=== PATIENT | male | born 1940 | race Native Hawaiian/Other Pacific Islander ===

== ENCOUNTER 2016-08-22 08:22 | Outpatient (CLI) | payer OTHER ==
[2016-08-22 08:57] LABS: PLATELET COUNT 226 K/uL (142-355)
[2016-08-22 09:29] LABS: POTASSIUM 4.1 mmol/L (3.6-5.2)
== END 2016-08-22 09:30 | disposition home or self-care (01) ==
LOC: LABW 08:22
PROVIDERS: Physician Assistant
DX: R06.09 Other forms of dyspnea (principal); I10 Essential (primary) hypertension; Z79.899 Other long term (current) drug therapy; Z51.81 Encounter for therapeutic drug level monitoring
CPT/HCPCS: 36415; 80053; 80061; 82248; 85027

== ENCOUNTER 2018-06-30 10:36 | Outpatient (CLI) | payer OTHER | END 2018-06-30 10:53 | disposition short-term general hospital (02) | LOC: AMB 10:36 | DX: R07.89 Other chest pain (principal) | CPT/HCPCS: A0425; A0427 ==

== ENCOUNTER 2018-07-02 10:08 | Outpatient (CLI) | payer OTHER | END 2018-07-02 20:31 | disposition home or self-care (01) | LOC: LABW 10:08 | PROVIDERS: Internal Medicine Cardiovascular Disease | DX: E78.5 Hyperlipidemia, unspecified (principal); E11.9 Type 2 diabetes mellitus without complications; Z79.899 Other long term (current) drug therapy | CPT/HCPCS: 36415; 80053; 80061; 82248 ==

== ENCOUNTER 2019-12-07 14:32 | Outpatient (CLI) | payer OTHER ==
[2019-12-07 15:22] LABS: PLATELET COUNT 290 K/uL (142-355)
[2019-12-07 16:06] LABS: POTASSIUM 4.1 mmol/L (3.6-5.2)
== END 2019-12-07 20:47 | disposition home or self-care (01) ==
LOC: LABW 14:32
PROVIDERS: Orthopaedic Surgery
DX: M25.512 Pain in left shoulder (principal); M19.012 Primary osteoarthritis, left shoulder; M75.42 Impingement syndrome of left shoulder; M05.40 Rheumatoid myopathy with rheumatoid arthritis of unspecified site; Z79.899 Other long term (current) drug therapy; Z13.228 Encounter for screening for other metabolic disorders; Z13.1 Encounter for screening for diabetes mellitus; I10 Essential (primary) hypertension; Z79.82 Long term (current) use of aspirin; E11.65 Type 2 diabetes mellitus with hyperglycemia; R68.89 Other general symptoms and signs
CPT/HCPCS: 36415; 80053; 85027; 85651; 86038; 86140; 86430

== ENCOUNTER 2020-02-26 10:04 | Emergency (ER) | payer OTHER ==
[~2020-02-26] VITALS: Ht 177.8 cm; Wt 97.5 kg
[2020-02-26 10:50] LABS: PLATELET COUNT 232 K/uL (142-355)
[2020-02-26 10:57] LABS: POTASSIUM 4.1 mmol/L (3.6-5.2)
[2020-02-26] MEDS ORDERED: GLIP10TA55 PO (11:32)
[2020-02-26] MEDS ORDERED: ISOSORB MONO20 MG PO (11:33)
[2020-02-26] MEDS ORDERED: FENOFIBRIC ACID45 MG PO (11:34)
[2020-02-26] MEDS ORDERED: DULOXETINE HCL30 MG PO (11:35)
[2020-02-26] MEDS ORDERED: ELIQUIS5 MG PO (11:35)
[2020-02-26] MEDS ORDERED: CARDIZEM60 M1 PO (11:36)
[2020-02-26] MEDS ORDERED: CELEBREX100 MG PO (11:36)
[2020-02-26] MEDS ORDERED: LIPITOR20 MG PO (11:37)
[2020-02-26] MEDS ORDERED: METOPROLOL25 M1 PO (11:37)
[2020-02-26 11:45] VITALS: BP 139/79; TEMP 97.6
== END 2020-02-26 11:45 | disposition home or self-care (01) ==
LOC: ED 10:04
PROVIDERS: Family Medicine
DX: I10 Essential (primary) hypertension (principal); E11.65 Type 2 diabetes mellitus with hyperglycemia; Z79.84 Long term (current) use of oral hypoglycemic drugs; I48.91 Unspecified atrial fibrillation
CPT/HCPCS: 80053; 81000; 82550; 82553; 84484; 85027; 93005; 96372; 99283; J0696

== ENCOUNTER 2020-03-13 10:38 | Outpatient (CLI) | payer OTHER ==
[~2020-03-13 10:38] MED LIST: CARDIZEM60 M1 PO; CELEBREX100 MG PO; DULOXETINE HCL30 MG PO; ELIQUIS5 MG PO; FENOFIBRIC ACID45 MG PO; GLIP10TA55 PO; ISOSORB MONO20 MG PO; LIPITOR20 MG PO; METOPROLOL25 M1 PO
== END 2020-03-13 21:55 | disposition home or self-care (01) ==
LOC: RAD 10:38
PROVIDERS: ATTEND Internal Medicine Pulmonary Disease
DX: R06.09 Other forms of dyspnea (principal); Z77.090 Contact with and (suspected) exposure to asbestos

== ENCOUNTER 2020-08-28 14:17 | Outpatient (CLI) | payer OTHER | END 2020-08-28 20:05 | disposition home or self-care (01) | LOC: RAD 14:17 | PROVIDERS: ATTEND Physician Assistant | DX: M54.5 Low back pain (principal) ==

== ENCOUNTER 2020-09-14 09:35 | Outpatient (CLI) | payer OTHER | END 2020-09-14 23:59 | disposition home or self-care (01) | LOC: MRI 09:35 | PROVIDERS: ATTEND Physician Assistant | DX: M54.89 Other dorsalgia (principal); M47.899 Other spondylosis, site unspecified; M12.88 Other specific arthropathies, not elsewhere classified, other specified site | CPT/HCPCS: 36415; 82565; 84520; A9576 ==

== ENCOUNTER 2020-09-27 01:20 | Emergency (ER) | payer OTHER ==
[~2020-09-27] VITALS: Ht 177.8 cm; Wt 111.1 kg
[2020-09-27 02:35] LABS: PLATELET COUNT 137 K/uL (142-355)
[2020-09-27 02:41] LABS: POTASSIUM 3.6 mmol/L (3.6-5.2); SODIUM 144 mmol/L (136-145)
[2020-09-27 04:05] VITALS: BP 126/88; TEMP 98.6
== END 2020-09-27 04:05 | disposition home or self-care (01) ==
LOC: ED 01:20
PROVIDERS: Family Medicine
DX: R53.83 Other fatigue (principal); I48.91 Unspecified atrial fibrillation; W18.39XA Other fall on same level, initial encounter; Y92.098 Other place in other non-institutional residence as the place of occurrence of the external cause
CPT/HCPCS: 36415; 80053; 84484; 85027; 93005; 99283

== ENCOUNTER 2020-09-28 01:01 | Emergency (ER) | payer OTHER ==
[~2020-09-28] VITALS: Ht 177.8 cm; Wt 115.7 kg
[2020-09-28 01:01] VITALS: TEMP 101.8
[2020-09-28 02:03] VITALS: BP 114/43
[2020-09-30] MEDS ORDERED: ASPI-93 PO (10:18)
[2020-09-30] MEDS ORDERED: METO50TA27 PO (13:38)
[2020-09-30] MEDS ORDERED: DICL50TA PO (13:46)
[2020-09-30] MEDS ORDERED: DUTASTERIDE0.5 MG PO (13:47)
[2020-09-30] MEDS ORDERED: MULTAQ400 MG PO (13:48)
[2020-09-30] MEDS ORDERED: METF500T PO ×2 (13:49→13:50)
== END 2020-09-28 02:40 | disposition home or self-care (01) ==
LOC: ED 01:01
DX: S73.191A Other sprain of right hip, initial encounter (principal); W18.39XA Other fall on same level, initial encounter; Y92.89 Other specified places as the place of occurrence of the external cause
CPT/HCPCS: 96372; 99283; J1885

== ENCOUNTER 2020-10-10 14:47 | Emergency (ER) | payer OTHER ==
[~2020-10-10] VITALS: Ht 177.8 cm; Wt 112.9 kg
[~2020-10-10 14:47] MED LIST changes: +ASPI-93 PO; +DICL50TA PO; +DUTASTERIDE0.5 MG PO; +METF500T PO; +METO50TA27 PO; +MULTAQ400 MG PO
[2020-10-10 15:12] LABS: PLATELET COUNT 276 K/uL (142-355)
[2020-10-10 19:41] VITALS: BP 117/77; TEMP 98.1
== END 2020-10-10 19:41 | disposition home or self-care (01) ==
LOC: ED 14:47
PROVIDERS: Family Medicine
DX: R55 Syncope and collapse (principal); R11.2 Nausea with vomiting, unspecified; M54.5 Low back pain
CPT/HCPCS: 80053; 85027; 93005; 96374; 96375; 99284; J2175; J2405

== ENCOUNTER 2021-12-02 17:44 | Emergency (ER) | payer OTHER ==
[~2021-12-02] VITALS: Ht 177.8 cm; Wt 108.9 kg
[2021-12-02 18:40] VITALS: BP 147/90; TEMP 98.1
== END 2021-12-02 18:40 | disposition home or self-care (01) ==
LOC: ED 17:44
DX: I48.20 Chronic atrial fibrillation, unspecified (principal); S39.012A Strain of muscle, fascia and tendon of lower back, initial encounter; X58.XXXA Exposure to other specified factors, initial encounter; Y92.89 Other specified places as the place of occurrence of the external cause
CPT/HCPCS: 96372; 99282; J1885